=== PATIENT | female | born 1980 | race Caucasian/White ===

== ENCOUNTER 2017-01-25 21:46 | Emergency (ER) | payer OTHER | END 2017-01-26 00:05 | disposition home or self-care (01) | LOC: D.ER 21:46 | DX: S06.0X9A Concussion with loss of consciousness of unspecified duration, initial encounter (principal); W22.8XXA Striking against or struck by other objects, initial encounter; Y93.89 Activity, other specified; Y92.89 Other specified places as the place of occurrence of the external cause; S00.412A Abrasion of left ear, initial encounter; E03.9 Hypothyroidism, unspecified ==

== ENCOUNTER 2017-07-26 16:48 | Emergency (ER) | payer BC ==
[2017-07-26 18:56] LABS: BASOPHILS 1.1 % (0-2); EOSINOPHILS 3.7 % (0-7); HEMOGLOBIN 12.2 g/dL (12-16); IMMATURE GRANULOCYTES 0.3 % (0-5); LYMPHOCYTES 40.2 % (15-50); MCH 25.4 pg (26.0-34.0); MCHC 31.3 g/dL (31.0-37.0); MCV 81.1 fL (80.0-100.0); MEAN PLATELET VOLUME 9.8 fL (7.4-10.4); NEUTROPHILS 37.7 % (40-80); PLATELET COUNT 235 10x3/uL (130-400); RBC 4.81 10x6/uL (4.00-5.40); RDW 15.9 % (11.5-14.5); WBC 3.5 10x3/uL (4.8-10.8)
[2017-07-26 19:18] LABS: ALBUMIN 2.8 g/dL (3.4-5.0); ALKALINE PHOSPHATASE 82 U/L (46-116); ALT (SGPT) 32 U/L (10-68); CALC OSMOLALITY 284 mosm/kg (275-300); CALCIUM 7.8 mg/dL (8.5-10.1); CARBON DIOXIDE 24.2 mmol/L (21.0-32.0); CHLORIDE - SERUM 108 mmol/L (98-107); CREATININE - SERUM 0.5 mg/dL (0.6-1.3); GLUCOSE 132 mg/dL (74-106); PROTEIN - SERUM 6.6 g/dL (6.4-8.2); SODIUM 143 mmol/L (136-145); UREA NITROGEN 8 mg/dL (7-18); eGFR NON AFRICAN AMERICAN > 90 mL/min (90-120)
== END 2017-07-26 19:52 | disposition home or self-care (01) ==
LOC: D.ER 16:48
PROVIDERS: Physician Assistant
DX: R05 Cough (principal); R50.9 Fever, unspecified; R53.81 Other malaise